=== PATIENT | female | born 1955 | race Caucasian/White ===

== ENCOUNTER 2025-08-18 15:22 | Emergency (ER) | payer MEDICARE, OTHER ==
[~2025-08-18] VITALS: Ht 180.3 cm; Wt 40.0 kg
[2025-08-18] MEDS ORDERED: BACTRIM DS TAB1 EACH PO (16:09)
[2025-08-18] MEDS ORDERED: BUSPIRONE HCL5 MG PO (16:10)
[2025-08-18 16:15] VITALS: BP 117/73
[2025-08-18] MEDS ORDERED: TRIMETHOPRIM/SULFAMETHOXAZOLE 1 EA TAB PO ONE (16:15)
== END 2025-08-18 16:16 | disposition home or self-care (01) ==
LOC: ED 15:22
DX: L03.116 Cellulitis of left lower limb (principal); Z79.899 Other long term (current) drug therapy
CPT/HCPCS: 99282; A9270